=== PATIENT | male | born 1945 | race African-American/Black ===

== ENCOUNTER 2024-01-27 12:14 | Inpatient (IN) | payer OTHER, MEDICAID ==
[~2024-01-27] VITALS: Ht 165.1 cm; Wt 88.0 kg
[2024-01-27 12:15] VITALS: BP_SYST 107; PULSE 83; RESP 18; TEMP 98.3; O2SAT 98
[2024-01-27] MEDS: NACL 0.9% 1,000 ML IV ONE (13:06)
[2024-01-27 13:09] LABS: HEMATOCRIT 30.1 % (36-54); HEMOGLOBIN 9.7 g/dL (14.0-18.0); MEAN CORPUSCULAR HEMOGLOBIN 30 pg (27-31); MEAN CORPUSCULAR HGB CONC 32 % (32-36); MEAN CORPUSCULAR VOLUME 92 fL (79.0-98.0); PLATELET COUNT (AUTO) 121 K/uL (130-430); RED BLOOD CELL COUNT(AUTO) 3.28 MIL/uL (4.2-6.2); RED CELL DISTRIBUTION WIDTH 14.6 % (9.0-15.0); WHITE BLOOD COUNT (AUTO) 11.7 K/uL (4.8-10.8)
[2024-01-27 13:14] LABS: CLARITY/URINE HAZY (CLEAR); COLOR,URINE Y (YELLOW); GLUCOSE,URINE NEGATIVE (NEGATIVE); PH,URINE 7.5 (5.0-8.0); PROTEIN URINE 2+ (NEGATIVE)
[2024-01-27 13:15] LABS: BILIRUBIN,URINE NEGATIVE (NEGATIVE); BLOOD, URINE 3+ (NEGATIVE); KETONES,URINE NEGATIVE (NEGATIVE); LEUKOCYTE ESTERASE ,URINE 1+ (NEGATIVE); NITRITE, URINE NEGATIVE (NEGATIVE); UROBILINOGEN,URINE 0.2 (0.2-1.0)
[2024-01-27 13:16] LABS: ALANINE AMINOTRANSFERASE 28 U/L (12-78); ALBUMIN 2.1 g/dL (3.4-4.8); ASPARTATE AMINOTRANSFERASE 22 U/L (10-37); BILIRUBIN,DIRECT 0.2 mg/dL (0.0-0.3); CREATINE KINASE, TOTAL 371 U/L (39-308); TOTAL BILIRUBIN 0.6 mg/dL (0.0-1.0)
[2024-01-27 13:17] LABS: ACETONE, SERUM NEGATIVE (NEGATIVE)
[2024-01-27 13:21] LABS: INR 1.4 (0.80-1.20); PROTHROMBIN TIME 13.9 SECS (9.5-12.5)
[2024-01-27 13:23] LABS: BACTERIA,URINE MANY /HPF (None Seen); RBC,URINE 20-50 /HPF (0-3); WBC,URINE 20-50 /HPF (0-3)
[2024-01-27 13:48] LABS: ANION GAP 9 (5-15); CALCIUM 8.2 mg/dL (8.4-11.0); CARBON DIOXIDE 26 mmol/L (23-29); CHLORIDE 105 mmol/L (98-107); CKMB RELATIVE INDEX 1.1 (0.0-2.9); CREATINE KINASE MB 4.2 ng/mL (0-3.6); CREATININE 4.25 mg/dL (0.55-1.30); GLUCOSE 268 mg/dL (74-106); POTASSIUM 4.2 mmol/L (3.5-5.1); SODIUM SERUM 140 mmol/L (136-145); UREA NITROGEN, BLOOD 64 mg/dL (8-21)
[2024-01-27 13:49] LABS: BAND % (MANUAL) 33 % (0-6); BASOPHILS % (MANUAL) 0 % (0-2); EOSINOPHILS % (MANUAL) 0 % (0-7); LYMPHOCYTES % (MANUAL) 6 % (20-46); METAMYELOCYTES % 2 % (0-0); MONOCYTES % (MANUAL) 4 % (0-11); PLATELET ESTIMATE DECREASED (ADEQUATE)
[2024-01-27] MEDS ORDERED: HYDROcodone/ACETAMIN 5-325 MG TAB (NORCO/ VICODIN) PO PRN (14:15)
[2024-01-27] MEDS ORDERED: ACETAMINOPHEN 325 MG TABLET PO PRN ×2 (14:15)
[2024-01-27] MEDS ORDERED: HYDROcodone/ACETAMIN 10-325 MG TAB PO PRN (14:15)
[2024-01-27] MEDS ORDERED: ONDANSETRON HCL 4 MG/2 ML VIAL IVP PRN (14:15)
[2024-01-27] MEDS ORDERED: DEXTROSE 50% JECT 50 ML DISP.SYRIN IVP PRN (14:30)
[2024-01-27] MEDS ORDERED: D5W 1,000 ML IV PRN (14:30)
[2024-01-27] MEDS ORDERED: GLUCOSE (DEXTROSE) ORAL GEL -Adults PO PRN (14:30)
[2024-01-27] MEDS ORDERED: cefTRIAXone 1 GM VIAL ONE (14:44)
[2024-01-27] MEDS ORDERED: DOCU250C14 PO (14:50)
[2024-01-27] MEDS ORDERED: ATOR20TA64 PO (14:50)
[2024-01-27] MEDS ORDERED: LIDO700A30 TP (14:50)
[2024-01-27] MEDS ORDERED: ESCI5TAB16 PO (14:50)
[2024-01-27] MEDS ORDERED: LEVO500P13 IV (14:50)
[2024-01-27] MEDS ORDERED: MIRT-91 PO (14:50)
[2024-01-27] MEDS: cefTRIAXone 1 GM in D5W 50 ML IV ONE (14:50)
[2024-01-27] MEDS ORDERED: LISI2.5T48 PO (14:50)
[2024-01-27] MEDS ORDERED: GABA-529 PO (14:50)
[2024-01-27] MEDS ORDERED: FINA5TAB11 PO (14:50)
[2024-01-27] MEDS ORDERED: ERGO2000 PO (14:50)
[2024-01-27] MEDS ORDERED: MULT-598 PO (14:50)
[2024-01-27] MEDS ORDERED: TAMS0.4C96 PO (14:50)
[2024-01-27] MEDS ORDERED: VITD2000 PO (14:50)
[2024-01-27] MEDS ORDERED: FAMO40TA7 PO (14:50)
[2024-01-27] MEDS ORDERED: OLAN2.5T29 PO (14:50)
[2024-01-27] MEDS ORDERED: APIX5TAB PO (14:50)
[2024-01-27] MEDS: 0.45% NACL 1,000 ML IV SCH (14:51)
[2024-01-27] MEDS ORDERED: INSULIN Lispro 100 UNITS/ML, 3 ML VIAL (humaLOG) ONE (16:18)
[2024-01-27] MEDS: INSULIN LISPRO SLIDING SCALE 100 UNITS/ML, 3 ML VIAL (humaLOG) SUBCUT PRN (16:18)
[2024-01-27] MEDS: MIDODRINE HCL 5 MG TABLET (PROAMATINE) PO SCH (16:40)
[2024-01-27] MEDS: FINASTERIDE 5 MG TABLET (PROSCAR) PO ONE (16:40)
[2024-01-27] MEDS: TAMSULOSIN HCL 0.4 MG CAP PO ONE (16:40)
[2024-01-27] MEDS ORDERED: HALOPERIDOL LACTATE 5 MG/ML VIAL IM PRN (17:00)
[2024-01-27 17:22] VITALS: BP_SYST 141; PULSE 80; RESP 20; TEMP 97.1
[2024-01-27 18:06] VITALS: O2SAT 97
[2024-01-27 18:32] VITALS: BP_SYST 243; PULSE 82; RESP 18; TEMP 98; O2SAT 97
[2024-01-27 18:45] VITALS: BP_SYST 150
[2024-01-27 20:00] VITALS: BP_SYST 122; PULSE 81; RESP 18; TEMP 99; O2SAT 100
[2024-01-27] MEDS: DOCUSATE SODIUM 100 MG CAPSULE PO SCH (21:53)
[2024-01-27] MEDS: OLANZapine 2.5 MG TABLET PO SCH (21:53)
[2024-01-27] MEDS: ATORVASTATIN 20 MG TABLET PO SCH (21:53)
[2024-01-28 00:07] VITALS: BP_SYST 120; PULSE 75; RESP 18; TEMP 97.5; O2SAT 100
[2024-01-28 08:11] LABS: BASOPHILS % (AUTO) 0.2 % (0.0-2.0); EOSINOPHILS # (AUTO) 0.1 K/uL (0.0-0.4); EOSINOPHILS % (AUTO) 0.6 % (0.0-4.0); HEMATOCRIT 30.4 % (36-54); LYMPHOCYTES # (AUTO) 0.5 K/uL (1.0-5.5); LYMPHOCYTES % (AUTO) 4.4 % (20.5-51.5); MEAN CORPUSCULAR HEMOGLOBIN 30 pg (27-31); MEAN CORPUSCULAR HGB CONC 33 % (32-36); MEAN CORPUSCULAR VOLUME 91 fL (79.0-98.0); MONOCYTES # (AUTO) 0.6 K/uL (0.0-1.0); MONOCYTES % (AUTO) 5.2 % (1.7-9.3); NEUTROPHILS # (AUTO) 9.8 K/uL (1.8-7.7); NEUTROPHILS % (AUTO) 89.6 % (40.0-70.0); PLATELET COUNT (AUTO) 112 K/uL (130-430); RED BLOOD CELL COUNT(AUTO) 3.33 MIL/uL (4.2-6.2); RED CELL DISTRIBUTION WIDTH 14.3 % (9.0-15.0); WHITE BLOOD COUNT (AUTO) 10.9 K/uL (4.8-10.8)
[2024-01-28 08:14] VITALS: BP_SYST 99; PULSE 71; RESP 19; TEMP 97.5; O2SAT 100
[2024-01-28 08:23] LABS: TOTAL IRON BIND. CAPACITY 144 ug/dL (250-450)
[2024-01-28 08:25] LABS: ANION GAP 10 (5-15); CARBON DIOXIDE 25 mmol/L (23-29); CHLORIDE 105 mmol/L (98-107); CREATININE 3.93 mg/dL (0.55-1.30); GLUCOSE 144 mg/dL (74-106); PHOSPHORUS 4.6 mg/dL (2.7-4.5); SODIUM SERUM 140 mmol/L (136-145); UREA NITROGEN, BLOOD 74 mg/dL (8-21)
[2024-01-28] MEDS: TAMSULOSIN HCL 0.4 MG CAP PO SCH (09:09)
[2024-01-28] MEDS: FINASTERIDE 5 MG TABLET (PROSCAR) PO SCH (09:12)
[2024-01-28] MEDS: cefTRIAXone 1 GM IVPB PREMIX 50 ML IV SCH (09:27)
[2024-01-28 10:00] VITALS: O2SAT 100
[2024-01-28 11:45] VITALS: BP_SYST 98; PULSE 64; RESP 18; TEMP 96.9; O2SAT 99
[2024-01-28] MEDS: HEPARIN SODIUM,PORCINE 5,000 UNITS/ML VIAL SUBCUT ONE (12:03)
[2024-01-28 15:25] VITALS: BP_SYST 130; PULSE 82; RESP 18; TEMP 97.6
[2024-01-28 20:00] VITALS: BP_SYST 143; PULSE 87; RESP 18; TEMP 97.8; O2SAT 99
[2024-01-28] MEDS: MIRTAZAPINE 15 MG TABLET PO SCH (21:24)
[2024-01-28] MEDS: FERROUS SULFATE 325 MG TABLET.DR PO SCH (21:24)
[2024-01-28] MEDS: HEPARIN SODIUM,PORCINE 5,000 UNITS/ML VIAL SUBCUT SCH (21:27)
[2024-01-29] VITALS (10 sets, daily range): BP systolic 108–131; PULSE 70–83; RESP 15–20; TEMP 97–99.1; O2SAT 96–100
[2024-01-29 05:57] LABS: BASOPHILS % (AUTO) 0.1 % (0.0-2.0); EOSINOPHILS # (AUTO) 0.1 K/uL (0.0-0.4); EOSINOPHILS % (AUTO) 0.8 % (0.0-4.0); HEMATOCRIT 28.6 % (36-54); HEMOGLOBIN 9.6 g/dL (14.0-18.0); LYMPHOCYTES # (AUTO) 0.4 K/uL (1.0-5.5); LYMPHOCYTES % (AUTO) 4.4 % (20.5-51.5); MEAN CORPUSCULAR HEMOGLOBIN 30 pg (27-31); MEAN CORPUSCULAR HGB CONC 34 % (32-36); MEAN CORPUSCULAR VOLUME 91 fL (79.0-98.0); MONOCYTES # (AUTO) 0.5 K/uL (0.0-1.0); MONOCYTES % (AUTO) 6.1 % (1.7-9.3); NEUTROPHILS % (AUTO) 88.6 % (40.0-70.0); PLATELET COUNT (AUTO) 113 K/uL (130-430); RED BLOOD CELL COUNT(AUTO) 3.15 MIL/uL (4.2-6.2); RED CELL DISTRIBUTION WIDTH 14.1 % (9.0-15.0)
[2024-01-29 06:38] LABS: ANION GAP 11 (5-15); CALCIUM 8.1 mg/dL (8.4-11.0); CARBON DIOXIDE 23 mmol/L (23-29); CHLORIDE 104 mmol/L (98-107); CREATININE 3.44 mg/dL (0.55-1.30); GLUCOSE 147 mg/dL (74-106); POTASSIUM 3.6 mmol/L (3.5-5.1); SODIUM SERUM 138 mmol/L (136-145); UREA NITROGEN, BLOOD 89 mg/dL (8-21)
[2024-01-29] MEDS: CITALOPRAM HYDROBROMIDE 20 MG TABLET PO SCH (08:55)
[2024-01-29] MEDS: NEPHROVITE, (FOLIC ACID/VITAMIN B COMP W-C 1 TAB) PO SCH (08:55)
[2024-01-29] MEDS: levalbuterol HCL 0.63 MG/3 ML VIAL.NEB INH ONE ×2 (11:23→11:25)
[2024-01-29] MEDS: levalbuterol HCL 0.63 MG/3 ML VIAL.NEB INH SCH (13:44)
[2024-01-30] VITALS (10 sets, daily range): BP systolic 114–124; PULSE 67–80; RESP 17–20; TEMP 97.2–99; O2SAT 96–100
[2024-01-30 07:48] LABS: BASOPHILS % (AUTO) 0.4 % (0.0-2.0); EOSINOPHILS # (AUTO) 0.2 K/uL (0.0-0.4); EOSINOPHILS % (AUTO) 2.4 % (0.0-4.0); HEMATOCRIT 28.5 % (36-54); HEMOGLOBIN 9.5 g/dL (14.0-18.0); LYMPHOCYTES # (AUTO) 0.6 K/uL (1.0-5.5); LYMPHOCYTES % (AUTO) 8.6 % (20.5-51.5); MEAN CORPUSCULAR HEMOGLOBIN 30 pg (27-31); MEAN CORPUSCULAR HGB CONC 34 % (32-36); MEAN CORPUSCULAR VOLUME 90 fL (79.0-98.0); MONOCYTES # (AUTO) 0.7 K/uL (0.0-1.0); MONOCYTES % (AUTO) 10.4 % (1.7-9.3); NEUTROPHILS # (AUTO) 5.2 K/uL (1.8-7.7); NEUTROPHILS % (AUTO) 78.2 % (40.0-70.0); PLATELET COUNT (AUTO) 117 K/uL (130-430); RED BLOOD CELL COUNT(AUTO) 3.15 MIL/uL (4.2-6.2); RED CELL DISTRIBUTION WIDTH 14.1 % (9.0-15.0)
[2024-01-30 07:55] LABS: WHITE BLOOD COUNT (AUTO) 6.6 K/uL (4.8-10.8)
[2024-01-30 08:40] LABS: ANION GAP 7 (5-15); CARBON DIOXIDE 23 mmol/L (23-29); CHLORIDE 104 mmol/L (98-107); CREATININE 2.63 mg/dL (0.55-1.30); GLUCOSE 146 mg/dL (74-106); POTASSIUM 3.3 mmol/L (3.5-5.1); SODIUM SERUM 134 mmol/L (136-145); TOTAL BILIRUBIN 0.5 mg/dL (0.0-1.0); UREA NITROGEN, BLOOD 74 mg/dL (8-21)
[2024-01-30 08:41] LABS: ALANINE AMINOTRANSFERASE 28 U/L (12-78); ALBUMIN 1.9 g/dL (3.4-4.8); ASPARTATE AMINOTRANSFERASE 24 U/L (10-37); TOTAL PROTEIN, SERUM 5.7 g/dL (6.4-8.3)
[2024-01-31] VITALS (9 sets, daily range): BP systolic 108–154; PULSE 67–77; RESP 17–20; TEMP 97–98; O2SAT 98–100
[2024-01-31] MEDS: LORazepam 2 MG/ML VIAL IVP PRN (03:21)
[2024-01-31 06:04] LABS: BASOPHILS % (AUTO) 0.2 % (0.0-2.0); EOSINOPHILS # (AUTO) 0.2 K/uL (0.0-0.4); EOSINOPHILS % (AUTO) 4.4 % (0.0-4.0); HEMATOCRIT 25.4 % (36-54); HEMOGLOBIN 8.5 g/dL (14.0-18.0); LYMPHOCYTES # (AUTO) 0.4 K/uL (1.0-5.5); LYMPHOCYTES % (AUTO) 11.4 % (20.5-51.5); MEAN CORPUSCULAR HEMOGLOBIN 30 pg (27-31); MEAN CORPUSCULAR HGB CONC 34 % (32-36); MEAN CORPUSCULAR VOLUME 89 fL (79.0-98.0); MONOCYTES # (AUTO) 0.6 K/uL (0.0-1.0); MONOCYTES % (AUTO) 15.5 % (1.7-9.3); NEUTROPHILS # (AUTO) 2.6 K/uL (1.8-7.7); NEUTROPHILS % (AUTO) 68.5 % (40.0-70.0); PLATELET COUNT (AUTO) 115 K/uL (130-430); RED BLOOD CELL COUNT(AUTO) 2.85 MIL/uL (4.2-6.2); WHITE BLOOD COUNT (AUTO) 3.8 K/uL (4.8-10.8)
[2024-01-31 06:16] LABS: ALANINE AMINOTRANSFERASE 30 U/L (12-78); ALBUMIN 1.8 g/dL (3.4-4.8); ANION GAP 11 (5-15); ASPARTATE AMINOTRANSFERASE 21 U/L (10-37); CALCIUM 7.8 mg/dL (8.4-11.0); CARBON DIOXIDE 23 mmol/L (23-29); CHLORIDE 103 mmol/L (98-107); CHOLESTEROL 83 mg/dL (<200); CREATININE 2.25 mg/dL (0.55-1.30); GLUCOSE 210 mg/dL (74-106); HDL CHOLESTEROL 38 mg/dL (>45); POTASSIUM 3.1 mmol/L (3.5-5.1); SODIUM SERUM 137 mmol/L (136-145); TOTAL BILIRUBIN 0.4 mg/dL (0.0-1.0); TOTAL PROTEIN, SERUM 5.3 g/dL (6.4-8.3); TRIGLYCERIDES 47 mg/dL (30-150); UREA NITROGEN, BLOOD 62 mg/dL (8-21)
[2024-01-31] MEDS: POTASSIUM CHLORIDE 40 MEQ in NACL 0.9% 1,000 ML IV SCH (06:45)
[2024-01-31] MEDS: D5/0.45 NS 500 ML IV ONE (08:30)
[2024-01-31] MEDS: POTASSIUM CHLORIDE 20 MEQ TABLET.ER PO ONE (16:54)
[2024-02-01] VITALS (10 sets, daily range): BP systolic 112–158; PULSE 69–81; RESP 18; TEMP 97.4–98.4; O2SAT 94–100
[2024-02-01] MEDS: KCL 40 mEq in 100 mL (PREMIX) 100 ML IV ONE (02:06)
[2024-02-01 07:50] LABS: BASOPHILS % (AUTO) 0.4 % (0.0-2.0); EOSINOPHILS # (AUTO) 0.2 K/uL (0.0-0.4); HEMATOCRIT 27.5 % (36-54); HEMOGLOBIN 9.1 g/dL (14.0-18.0); LYMPHOCYTES # (AUTO) 0.6 K/uL (1.0-5.5); LYMPHOCYTES % (AUTO) 14.7 % (20.5-51.5); MEAN CORPUSCULAR HEMOGLOBIN 30 pg (27-31); MEAN CORPUSCULAR HGB CONC 33 % (32-36); MEAN CORPUSCULAR VOLUME 91 fL (79.0-98.0); MONOCYTES # (AUTO) 0.6 K/uL (0.0-1.0); MONOCYTES % (AUTO) 14.8 % (1.7-9.3); NEUTROPHILS # (AUTO) 2.6 K/uL (1.8-7.7); NEUTROPHILS % (AUTO) 65.1 % (40.0-70.0); PLATELET COUNT (AUTO) 124 K/uL (130-430); RED BLOOD CELL COUNT(AUTO) 3.03 MIL/uL (4.2-6.2)
[2024-02-01 08:19] LABS: ANION GAP 8 (5-15); CALCIUM 7.9 mg/dL (8.4-11.0); CARBON DIOXIDE 24 mmol/L (23-29); CHLORIDE 107 mmol/L (98-107); CREATININE 1.76 mg/dL (0.55-1.30); GLUCOSE 177 mg/dL (74-106); SODIUM SERUM 139 mmol/L (136-145); UREA NITROGEN, BLOOD 51 mg/dL (8-21)
[2024-02-01] MEDS ORDERED: LEVO250T73 PO (13:48)
[2024-02-02] VITALS (10 sets, daily range): BP systolic 132–165; PULSE 69–73; RESP 16–18; TEMP 97.5–98.1; O2SAT 97–100
[2024-02-02 06:40] LABS: BASOPHILS % (AUTO) 0.5 % (0.0-2.0); EOSINOPHILS # (AUTO) 0.2 K/uL (0.0-0.4); HEMOGLOBIN 9.3 g/dL (14.0-18.0); LYMPHOCYTES # (AUTO) 0.7 K/uL (1.0-5.5); LYMPHOCYTES % (AUTO) 13.9 % (20.5-51.5); MEAN CORPUSCULAR HEMOGLOBIN 30 pg (27-31); MEAN CORPUSCULAR HGB CONC 33 % (32-36); MEAN CORPUSCULAR VOLUME 90 fL (79.0-98.0); MONOCYTES # (AUTO) 0.4 K/uL (0.0-1.0); MONOCYTES % (AUTO) 9.4 % (1.7-9.3); NEUTROPHILS # (AUTO) 3.4 K/uL (1.8-7.7); NEUTROPHILS % (AUTO) 71.2 % (40.0-70.0); PLATELET COUNT (AUTO) 139 K/uL (130-430); RED BLOOD CELL COUNT(AUTO) 3.11 MIL/uL (4.2-6.2); RED CELL DISTRIBUTION WIDTH 13.9 % (9.0-15.0); WHITE BLOOD COUNT (AUTO) 4.7 K/uL (4.8-10.8)
[2024-02-02 07:08] LABS: ALANINE AMINOTRANSFERASE 35 U/L (12-78); ALBUMIN 1.8 g/dL (3.4-4.8); ANION GAP 5 (5-15); ASPARTATE AMINOTRANSFERASE 19 U/L (10-37); CALCIUM 8.2 mg/dL (8.4-11.0); CARBON DIOXIDE 26 mmol/L (23-29); CHLORIDE 110 mmol/L (98-107); GLUCOSE 141 mg/dL (74-106); POTASSIUM 3.9 mmol/L (3.5-5.1); SODIUM SERUM 141 mmol/L (136-145); TOTAL BILIRUBIN 0.3 mg/dL (0.0-1.0); TOTAL PROTEIN, SERUM 5.6 g/dL (6.4-8.3); UREA NITROGEN, BLOOD 42 mg/dL (8-21)
[2024-02-02] MEDS: hydrALAZINE HCL 20 MG/ML VIAL IVP PRN (20:54)
[2024-02-02] MEDS: HALOPERIDOL LACTATE 5 MG/ML VIAL IM PRN (22:59)
[2024-02-03] VITALS (8 sets, daily range): BP systolic 127–167; PULSE 64–84; RESP 16–18; TEMP 97.3–98.5; O2SAT 95–100
[2024-02-03] MEDS ORDERED: LEVO250T73 PO (11:50)
== END 2024-02-03 15:55 | DRG 871 ==
LOC: SED 12:14 → STU 14:04
PROVIDERS: ADMIT Internal Medicine; ATTEND Internal Medicine
DX: A41.9 Sepsis, unspecified organism (principal); G93.41 Metabolic encephalopathy; N17.9 Acute kidney failure, unspecified; N39.0 Urinary tract infection, site not specified; I13.0 Hypertensive heart and chronic kidney disease with heart failure and stage 1 through stage 4 chronic kidney disease, or unspecified chronic kidney disease; N40.0 Benign prostatic hyperplasia without lower urinary tract symptoms; N18.9 Chronic kidney disease, unspecified; I50.9 Heart failure, unspecified; E11.22 Type 2 diabetes mellitus with diabetic chronic kidney disease; E78.5 Hyperlipidemia, unspecified; G20.A1 Parkinson's disease without dyskinesia, without mention of fluctuations; E11.65 Type 2 diabetes mellitus with hyperglycemia; D69.6 Thrombocytopenia, unspecified; Z79.899 Other long term (current) drug therapy; Z79.01 Long term (current) use of anticoagulants; Z74.01 Bed confinement status; G90.9 Disorder of the autonomic nervous system, unspecified
CPT/HCPCS: 36415; 70450-TC; 71045; 76770; 80048; 80053; 80061; 80076; 81000; 81001; 81015; 82009; 82550; 82553; 82948; 83037; 83540; 83550; 83605; 83735; 83880; 84100; 84484; 85007; 85025; 85027; 85610; 85730; 87040; 87081; 87086; 87186; 92610-GN; 93005; 93306; 94070; 94640; 94664; 94760; 99285; G0378; J0360; J0696; J1630; J1644; J2060; J3480; J7030; J7614